=== PATIENT | female | born 1955 | race African-American/Black ===

== ENCOUNTER 2019-11-14 09:08 | Emergency (ER) | payer OTHER ==
[~2019-11-14] VITALS: Ht 157.5 cm; Wt 63.5 kg
--- NOTE | ~2019-11-14 | EMS ---
[facility] [address] [place] [address] EMS Patient Care Report Name: DANETTE HAILE Room #: PRE GRETCHEN De La Garza#: [id number] Admission: Attend Phys: Discharge: Date of : 53 Report #: [id number] THIS REPORT FOR: //name// Report Transmitted: 11/14/2019 09:05 EMS Care Summary [place], [place]/[facility] Incident [id number] @ 11/14/2019 08:27 Incident Location [address] [place], [place] [id number] Patient DANETTE HAILE Female, 64 Years 1955 Patient Address [address] [place] [address] Patient History Seizures, Patient Allergies Other drug allergy, Patient Medications Other, Chief Complaint WEAKNESS Disposition Transported No Lights/[place] Dispatch Reason Sick Person Transported To [facility] Narrative PT FOUND SITTING ON COUCH. [facility] T8 ALSO RESPONDED. ALL CREW WEARING MASKS. PT STATES SHE HAS BEEN WEAK AND NOT EATING OR SLEEPING WELL FOR SEVERAL DAYS. PT [facility] [address] [place] [address] EMS Patient Care Report Name: DANETTE HAILE Room #: PRE Jimbo.#: [id number] Admission: Attend Phys: Discharge: Date of : 53 Report #: [id number] ALSO C/O HEADACHE AND A STRANGE TASTE IN HE RMOUTH. PT DENIES OTHER SPECIFIC COMPLAINTS. PT STATES SHE WAS RECENTLY AT TO HAVE THYROID CHECKED AND IS WAITING FO RFURTHER TESTING. PT AHS HER OWN MASK. TRANSPORTED WITHOUT INCIDENT. Initial Vitals @08:48P: 94,BP: 174/92,CO: 3,SpO2: 98, @08:45P: 99,R: 16,BP: 170/86,Pain: 0/10,GCS: 15,Glucose: 131,SpO2: 88,Revised Trauma: 12, Assessments @08:37MENTAL:No Abnormalities,SKIN:No Abnormalities,HEENT:Head/Face: No Abnormalities,Eyes: No Abnormalities,Neck/Airway: No Abnormalities,LUNG SOUNDS:ABDOMEN:PELVIS//GI:EXTREMITIES:PULSE:NEURO:No Abnormalities, Impression Generalized Weakness Procedures @08:37ALS AssessmentResponse: UnchangedSucceeded@08:42StairchairResponse: Unchanged Timeline 08:24,Call Received 08:24,Dispatch Notified 08:27,Dispatched 08:27,En Route 08:34,On Scene 08:37,At Patient 08:37,ALS Assessment,Response: UnchangedSucceeded, 08:42,Stairchair,Response: Unchanged 08:45,BP: 170/86 M,PULSE: 99,RR: 16 R,SPO2: 88 Ox,ETCO2: ,B,PAIN: 0,GCS: 15, 08:48,BP: 174/92 M,PULSE: 94,RR: R,SPO2: 98 Ox,ETCO2: ,BG: ,PAIN: ,GCS: , 08:52,Depart Scene 09:04,At Destination 09:38,Call Closed Disclaimer v1.1 Copyright 2020 [employer] This EMS Care Summary contains data elements from the applicable legal record (which may be displayed differently). It is designed to provide pertinent information for the following purposes: continuity of care, clinical quality, and state data reporting. The complete legal record is available to ED staff and administrators of the receiving hospital in [facility]'s Patient Tracker. All data is provided "as is."
[2019-11-14] MEDS ORDERED: LAMICTAL150 MG PO (09:17)
[2019-11-14] MEDS ORDERED: LAMICTAL200 MG PO (09:44)
[2019-11-14 09:45] LABS: URINE BILIRUBIN NEGATIVE (Negative); URINE BLOOD 1+ (Negative); URINE CLARITY CLEAR; URINE COLOR YELLOW; URINE GLUCOSE-RANDOM* NEGATIVE (Negative); URINE KETONES 2+ (Negative); URINE LEUKOCYTES-REFLEX NEGATIVE (Negative); URINE NITRITE-REFLEX NEGATIVE (Negative); URINE PROTEIN (DIPSTICK) TRACE (Negative); URINE SPECIFIC GRAVITY 1.025 (1.005-1.035); URINE UROBILINOGEN 0.2 E.U./dl (0.2-1.0)
[2019-11-14 09:52] LABS: ABSOLUTE NEUTROPHILS 2.7 thou/uL (1.4-8.2); BASOPHILS 1.3 % (0.0-2.0); EOSINOPHILS 2.8 % (0.0-3.0); HEMATOCRIT 40.6 % (37.0-47.0); HEMOGLOBIN 13.7 gm/dL (12.0-15.0); LYMPHOCYTES 32.6 % (24.0-44.0); MCH 30.9 pg (26.0-34.0); MCHC 33.7 g/dL (28.0-37.0); MCV 91.7 fL (80.0-100.0); MONOCYTES 7.5 % (1.0-8.0); PLATELET COUNT 270 thou/uL (150-400); POLYS 55.8 % (36.0-66.0); RBC 4.43 mil/uL (4.20-5.00); RDW 14.8 % (10.5-14.5); WBC 4.8 thou/uL (4.0-11.0)
[2019-11-14 09:57] LABS: CALCIUM 9.3 mg/dL (8.5-10.1); POTASSIUM 3.5 mmol/L (3.5-5.1)
[2019-11-14 10:03] LABS: TOTAL BILIRUBIN 0.3 mg/dL (0.2-1.0); TOTAL PROTEIN 7.8 g/dL (6.4-8.2)
[2019-11-14 10:33] LABS: MAGNESIUM 1.9 mg/dL (1.8-2.4)
[2019-11-14 10:35] LABS: BACTERIA-REFLEX 1-9 Few /HPF (None Seen); CASTS None Seen /LPF (None Seen); CRYSTALS None Seen /LPF (None Seen); MUCUS 0-3 Light strn/LPF (None Seen); SQUAMOUS 0-3 Few /LPF (0-3); URINE RBC 0-2 Rare /HPF (0-2); URINE WBC-REFLEX 0-5 Rare /HPF (0-5)
[2019-11-14 13:10] VITALS: BP 165/71
--- NOTE | 2019-11-14 14:07 | EKG ---
[facility] [place] [address] ELECTROCARDIOGRAM REPORT Name: DANETTE HAILE Room #: DEP [facility].Tan#: [id number] Admission: 11/14/19 Attend Phys: Discharge: 11/14/19 Date of : 53 Report #: [id number] THIS REPORT FOR: cc: Aster Duncan DNP, Mary E. DNP Couchonnal, Luis F. 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[facility] : 1955 Requested By: Yamilet Alfaro Order Number: [id number] MD: Boris Vazquez Measurements Intervals [place] Rate: 77 P: 41 DE: 152 QRS: 32 QRSD: 88 T: 41 QT: 412 QTc: 467 Interpretive Statements Sinus rhythm Baseline wander in lead(s) V3 No previous ECG available for comparison Electronically Signed On 11-14-2019 14:07:12 CDT by Boris Vazquez [email or web address] <ELECTRONICALLY SIGNED> By: Boris Vazquez MD 11/14/19 1407 1015 1015 Boris Vazquez MD /ANDRIY
[2019-11-15] MEDS ORDERED: LAMOTRIGINE150 MG PO (11:57)
[2019-11-15] MEDS ORDERED: MOBIC15 MG PO (15:08)
[2019-11-15] MEDS ORDERED: PENICILLIN VK500 M1 PO (15:08)
== END 2019-11-14 13:11 | disposition home or self-care (01) ==
LOC: ER 09:08
PROVIDERS: Emergency Medicine
DX: R53.1 Weakness (principal); R68.84 Jaw pain; R82.4 Acetonuria; G47.9 Sleep disorder, unspecified; G40.909 Epilepsy, unspecified, not intractable, without status epilepticus; Z88.1 Allergy status to other antibiotic agents

== ENCOUNTER 2019-11-15 11:37 | Emergency (ER) | payer OTHER ==
[~2019-11-15] VITALS: Ht 162.6 cm; Wt 63.5 kg
[~2019-11-15 11:37] MED LIST: LAMICTAL150 MG PO; LAMICTAL200 MG PO
[2019-11-15] MEDS ORDERED: LAMOTRIGINE150 MG PO (11:57)
[2019-11-15] MEDS ORDERED: MOBIC15 MG PO (15:08)
[2019-11-15] MEDS ORDERED: PENICILLIN VK500 M1 PO (15:08)
[2019-11-15 15:43] VITALS: BP 157/76
--- NOTE | 2019-11-16 09:55 | EKG ---
[facility] [place] [address] ELECTROCARDIOGRAM REPORT Name: DANETTE HAILE Room #: DEP [facility].R.#: [id number] Admission: 11/15/19 Attend Phys: Discharge: 11/15/19 Date of : 53 Report #: [id number] THIS REPORT FOR: cc: Aster Duncan DNP, Mary E. DNP Lundgren, Craig H. 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 : 1955 Requested By: Yamilet Alfaro Order Number: [id number] MD: Joe Morfin Measurements Intervals [place] Rate: 89 P: 66 SC: 149 QRS: 28 QRSD: 100 T: 51 QT: 382 QTc: 465 Interpretive Statements Sinus rhythm Nonspecific ST segment abnormality Compared to ECG 11/14/2019 10:15:[address] segment abnormality is new Electronically Signed On 11-16-2019 9:55:21 CDT by Joe Morfin [email or web address] <ELECTRONICALLY SIGNED> By: Joe Morfin MD, FACC 11/16/19 0955 1325 1325 Joe Morfin MD, [facility] /EPI
== END 2019-11-15 15:48 | disposition home or self-care (01) ==
LOC: ER 11:37
DX: K04.7 Periapical abscess without sinus (principal); R43.8 Other disturbances of smell and taste; G40.909 Epilepsy, unspecified, not intractable, without status epilepticus; Z79.899 Other long term (current) drug therapy; Z88.1 Allergy status to other antibiotic agents

== ENCOUNTER 2020-09-25 13:18 | Inpatient (IN) | payer OTHER ==
[~2020-09-25] VITALS: Ht 162.6 cm; Wt 68.0 kg
--- NOTE | ~2020-09-25 | EMS ---
[facility] [address] [place] [address] EMS Patient Care Report Name: DANETTE HAILE Room #: 170-12 ADM IN M.R.#: [id number] Admission: 09/25/20 Attend Phys: Celestine Casarez MD Discharge: Date of : 53 Report #: [id number] THIS REPORT FOR: //name// Report Transmitted: 09/25/2020 15:29 EMS Care Summary [place], [place]/[facility] Incident [id number] @ 09/25/2020 12:48 Incident Location [address] [place] [address] Patient DANETTE HAILE Female, 65 Years 1955 Patient Address [address] [place] [address] Patient History Seizures,Stroke/CVA, Patient Allergies Erythromycin, Patient Medications Keppra, Chief Complaint left side weakness Disposition Transported No Lights/[place] Dispatch Reason Stroke/CVA Transported To [facility] Narrative Arrived on the scene, with P36, for a 65 y/o female that is sitting on the floor of her apartment. Pt said that she hasn't been feeling like herself for [address] [address] EMS Patient Care Report Name: DANETTE HAILE Room #: 170-12 ADM IN Jimbo.#: [id number] Admission: 09/25/20 Attend Phys: Celestine Casarez MD Discharge: Date of : 53 Report #: [id number] about an hour now. Pt said that she had a stroke back in May and was unable to tell me if there was in lasting deficits from the stroke. Pt said that she is feeling weak on the left side. Pt is talking normally with some words and is really drawn out with other words and sentences. 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 Pt says that she has no hx of HTN but her pressure is high. Pt is unable to get herself off the floor with out help. See Pt Assessment Possible Stroke See Flowchart. Picked the Pt up off the floor and onto the stairchair. Moved the Pt from the apt to the cot via stairchair. Transported to the hospital L/S with no other changes or incidents. Moved the Pt from the cot to the bed via sheet. Transferred care to receiving facility. Initial Vitals @12:58P: 124,R: 18,BP: 196/72,Pain: 0/10,GCS: 15,Glucose: 141,SpO2: 99,Revised Trauma: 12, @13:12P: 102,R: 16,BP: 141/73,Pain: 0/10,GCS: 15,CO: 2,SpO2: 97,Revised Trauma: 12,[place] Suspected: false @13:03P: 114,R: 18,BP: 173/95,Pain: 0/10,GCS: 15,CO: 5,SpO2: 98,Revised Trauma: 12,[place] Suspected: false Assessments @12:55MENTAL:Person Oriented,Time Oriented,Place Oriented,Event Oriented,SKIN:HEENT:Head/Face: No Abnormalities,Eyes: No Abnormalities,Neck/Airway: No Abnormalities,LUNG SOUNDS:General: No Abnormalities,Left Upper: No Abnormalities,Right Upper: No Abnormalities,Left Lower: No Abnormalities,Right Lower: No Abnormalities,ABDOMEN:General: No Abnormalities,Left Upper: No Abnormalities,Right Upper: No Abnormalities,Left Lower: No Abnormalities,Right Lower: No Abnormalities,PELVIS//GI:No Abnormalities,EXTREMITIES:Left Arm: Weakness,Left Leg: Weakness,Right Arm: No Abnormalities,Right Leg: No Abnormalities,PULSE:Radial: 2+ Normal,NEURO:Other, Impression Stroke Procedures @12:55ALS AssessmentResponse: UnchangedSucceeded@13:05Saline Lock 5cc (18 ga) Site: Antecubital-RightResponse: UnchangedSucceeded@12:583-Lead ECGResponse: UnchangedSucceeded@13:10Stroke AlertResponse: Unchanged Timeline 12:45,Call Received 12:45,[place] [address] EMS Patient Care Report Name: DANETTE HAILE Room #: 170- ADM IN M.R.#: [id number] Admission: 09/25/20 Attend Phys: Celestine Casarez MD Discharge: Date of : 53 Report #: [id number] 12:48,Dispatched 12:49,En Route 12:53,On Scene 12:55,At Patient 12:55,ALS Assessment,Response: UnchangedSucceeded, 12:58,3-Lead ECG,Response: UnchangedSucceeded, 12:58,BP: 196/72 M,PULSE: 124,RR: 18 R,SPO2: 99 Ox,ETCO2: ,B,PAIN: 0,GCS: 15, 13:03,BP: 173/95 M,PULSE: 114,RR: 18 R,SPO2: 98 Ox,ETCO2: ,BG: ,PAIN: 0,GCS: 15, 13:05,Saline Lock 5cc 18 ga Site: Antecubital-Right,Response: UnchangedSucceeded, 13:08,Depart Scene 13:10,Stroke Alert,Response: Unchanged 13:12,BP: 141/73 M,PULSE: 102,RR: 16 R,SPO2: 97 Ox,ETCO2: ,BG: ,PAIN: 0,GCS: 15, 13:22,At Destination 13:46,Call Closed Disclaimer v1.1 Copyright 2020 [employer] This EMS Care Summary contains data elements from the applicable legal record (which may be displayed differently). It is designed to provide pertinent information for the following purposes: continuity of care, clinical quality, and state data reporting. The complete legal record is available to ED staff and administrators of the receiving hospital in [employer]'s Patient Tracker. All data is provided "as is."
[~2020-09-25 13:18] MED LIST changes: +LAMOTRIGINE150 MG PO; +MOBIC15 MG PO; +PENICILLIN VK500 M1 PO
[2020-09-25 13:19] VITALS: BP 155/76
[2020-09-25 13:39] LABS: ANION GAP 10 mmol/L (7-16); BUN 19 mg/dL (7-18); CALCIUM 9.4 mg/dL (8.5-10.1); CHLORIDE 104 mmol/L (98-107); CO2 28 mmol/L (21-32); CREATININE 1.2 mg/dL (0.6-1.0); GLUCOSE 126 mg/dL (74-106); SODIUM 142 mmol/L (136-145)
[2020-09-25 13:46] LABS: HEMOGLOBIN 12.6 gm/dL (12.0-15.0); MCH 31.3 pg (26.0-34.0); MCHC 33.2 g/dL (28.0-37.0); MCV 94.4 fL (80.0-100.0); PLATELET COUNT 265 thou/uL (150-400); RBC 4.03 mil/uL (4.20-5.00); RDW 14.8 % (10.5-14.5)
[2020-09-25 13:49] LABS: DIRECT BILIRUBIN < 0.1 mg/dL (<0.1-0.2); SGOT 15 U/L (15-37); SGPT 28 U/L (14-59); TOTAL BILIRUBIN 0.3 mg/dL (0.2-1.0); TOTAL PROTEIN 7.6 g/dL (6.4-8.2); TROPONIN-I <0.06 ng/mL (<0.06)
[2020-09-25 13:50] LABS: APTT 28.2 Seconds (24.5-32.8); PROTIME 10.9 Seconds (10.5-12.1)
[2020-09-25 14:30] LABS: URINE BILIRUBIN NEGATIVE (Negative); URINE BLOOD TRACE (Negative); URINE CLARITY CLEAR; URINE COLOR YELLOW; URINE GLUCOSE-RANDOM* NEGATIVE (Negative); URINE KETONES NEGATIVE (Negative); URINE LEUKOCYTES-REFLEX NEGATIVE (Negative); URINE NITRITE-REFLEX NEGATIVE (Negative); URINE PROTEIN (DIPSTICK) NEGATIVE (Negative); URINE UROBILINOGEN 0.2 E.U./dl (0.2-1.0)
[2020-09-25 14:34] LABS: ABSOLUTE NEUTROPHILS 2.4 thou/uL (1.4-8.2); ANISOCYTOSIS 1+; ATYPICAL LYMPHS 2 %
[2020-09-25 16:37] VITALS: BP 127/70
[2020-09-25 16:52] VITALS: BP 127/70
[2020-09-25 17:14] VITALS: BP 137/66
--- NOTE | 2020-09-25 18:43 | NUR ---
PT TO THE UNIT FROM THE ER. OREINTED TO ROOM AND BEDSPACE. IV FLUIDS STARTED ORDERED EEG COMPLETED. ASSESSMENT CHARTED - PT STATED BACK HURT WHEN SHE HAD TO LAY FLAT FOR EEG BUT IS BETTER NOW. NO CO'S AT THE PRESENT TIME
[2020-09-25 19:20] VITALS: BP 141/78
--- NOTE | 2020-09-25 21:20 | NUR ---
ASSUMED CARE AT 1900, ASSESSMENT COMPLETED. AT 2029, PT STATED SHE WANTED TO GO HOME, THAT SHE DIDN'T NEED TO STAY OVERNIGHT IN HOSPITAL FOR A SEIZURE. DISCUSSED THE CONSULT FOR NEUROLOGY IN AM AND THAT SHE WAS ADVISED TO STAY SINCE SHE WAS BEING WORKED UP FOR TIA vs SEIZURE. SHE STATED SHE UNDERSTOOD BUT FELT BETTER THAN EARLIER WHEN SHE CALLED EMS/CAME TO THE HOSPITAL. CALLED PUBLIC INFORMATION SPECIALIST ARCELIA AND HAZMAT CDL A DRIVER, BOTH STATED SHE WAS ABLE TO LEAVE AMA. PT SIGNED AMA PAPERWORK, IV AND TELE REMOVED. PT WALKED OFF UNIT BY JUICE PACKAGING MACHINES SETTER TO WAIT FOR HER RIDE AT THE ED ENTRANCE; LEFT IN STABLE CONDITION AT 2119.
--- NOTE | 2020-09-26 09:05 | EKG ---
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 09/26/20 0904 1341 1341 Wally Granger MD, FACC /EPI
--- NOTE | 2020-09-27 08:10 | NUR ---
ORDERS RECEIVED FOR P.T. TO EVAL AND TREAT. PT DISCHARGED PRIOR TO P.T. EVAL.
== END 2020-09-25 21:00 | disposition left against medical advice (07) | DRG 948 ==
LOC: ER 13:18 → EROBS 15:52 → 2N 15:52
PROVIDERS: Emergency Medicine; ADMIT Internal Medicine; ATTEND Internal Medicine
DX: R41.82 Altered mental status, unspecified (principal); G40.909 Epilepsy, unspecified, not intractable, without status epilepticus; Z53.29 Procedure and treatment not carried out because of patient's decision for other reasons; Z88.1 Allergy status to other antibiotic agents; Z86.73 Personal history of transient ischemic attack (TIA), and cerebral infarction without residual deficits
CPT/HCPCS: 10081

== ENCOUNTER 2021-04-09 07:46 | Emergency (ER) | payer OTHER ==
[~2021-04-09] VITALS: Ht 162.6 cm; Wt 65.8 kg
[2021-04-09] MEDS ORDERED: IBUPROFEN 800800 MG PO (09:48)
[2021-04-09 10:00] VITALS: BP 115/67
== END 2021-04-09 10:04 | disposition home or self-care (01) ==
LOC: ER 07:46
DX: M54.12 Radiculopathy, cervical region (principal); M25.512 Pain in left shoulder; M62.838 Other muscle spasm; Z79.899 Other long term (current) drug therapy; Z88.8 Allergy status to other drugs, medicaments and biological substances